=== PATIENT | male | born 1975 | race Caucasian/White ===

== ENCOUNTER → 2017-06-22 | Outpatient (CLI) | payer BC | LOC: BMCIMAGING 14:32 | PROVIDERS: ATTEND Registered Nurse General Practice | DX: M25.571 Pain in right ankle and joints of right foot (principal) ==

== ENCOUNTER 2018-05-09 10:39 | Emergency (ER) | payer BC ==
--- NOTE | 2018-05-09 10:58 | CPEKG ---
Heart Rate: 66 RR Interval: 909 P-R Interval: 140 QRSD Interval: 98 QT Interval: 404 QTC Interval: 424 P Narrows: 61 QRS Narrows: 72 T Wave Narrows: 12 EKG Severity - NORMAL ECG - EKG Impression: SINUS RHYTHM Electronically Signed By: Narinder Cruz 09-May-2018 11:53:01
[2018-05-09] MEDS ORDERED: HYOSCYAMINE SULFATE 0.125 MG TAB PO ONE (10:59)
[2018-05-09] MEDS ORDERED: MAG HYDROX/AL HYDROX/SIMETH 30 ML UDCUP PO ONE (10:59)
[2018-05-09] MEDS ORDERED: LIDOCAINE 2% VISCOUS 15 ML UDCUP PO ONE (10:59)
--- NOTE | 2018-05-09 11:02 | EDPHY ---
H & P Stated Complaint: CP Time Seen by Provider: 05/09/18 11:00 HPI/ROS: HPI: This is a 43-year-old male who presents with Chief Complaint: Epigastric and left upper quadrant pain times several weeks Location: Epigastric and left upper quadrant Quality: Pain Duration: Several weeks Signs and Symptoms: no shortness of breath at rest, no shortness of breath on exertion, no cough, no chest pain, no palpitations, no lower extremity edema, no wheezing, no orthopnea, no paroxysmal nocturnal dyspnea, no fever, no injury/ trauma, no hemoptysis, no carpal pedal spasms Timing: Intermittent episodes Severity: Suid-nv-yfbnrist Context: Patient is generally healthy, presents with intermittent episodes of epigastric and left upper quadrant burning pain that occurs approximately 2-3 times per week. He reports that there is no increase of the pain or shortness of breath with exertion. He denies any indigestion, early satiety, constipation , abdominal bloating, palpitations, lower extremity edema, calf pain. He did fly to [place] approximately 1-2 weeks ago. He is a nonsmoker. Denies any family cardiac history. He is physically active. He does report some belching and food intolerances. Does not regularly take NSAIDs. Only has 4 drinks of alcohol per week. Modifying Factors: None Comment: ROS: see HPI Constitutional: No fever, no chills, no weight loss Eyes: No blurred vision Respiratory: No shortness of breath, no cough Cardiovascular: + chest pain, no palpitations, no lower extremity edema Gastrointestinal: No nausea, no vomiting, no diarrhea Genitourinary: No dysuria Extremities: No myalgias Neurologic: No weakness, no numbness Skin: No rashes Hematologic: No bruising, no bleeding MEDICAL/SURGICAL/SOCIAL HISTORY: Medical history: Generally healthy. Does not take any regular medications. Surgical history: Varicocele surgery Social history: Never smoked. Employed CONSTITUTIONAL: Extremely well-appearing middle-aged white male who is physically fit, awake and alert, no obvious distress HEENT: Atraumatic and normocephalic, PERRL, EOMI. Nares patent; no rhinorrhea; no nasal mucosal edema. Tympanic membranes clear. Oropharynx clear, no exudate and moist pink mucosa. Airway patent. No lymphadenopathy. No meningismus. Cardiovascular: Normal S1/S2, regular rate, regular rhythm, without murmur rub or gallop. PULMONARY/CHEST: Symmetrical and nontender. Clear to auscultation bilaterally. Good air movement. No accessory muscle usage. ABDOMEN: Soft, nondistended, nontender, no rebound, no guarding, no peritoneal signs, no masses or organomegaly. No CVAT. EXTREMITIES: 2/2 pulses, strength 5/5, no deformities, no clubbing, no cyanosis or edema. NEUROLOGICAL: no focal neuro deficits. GCS 15. SKIN: Warm and dry, no erythema. no rash. Good capillary refill. Source: Patient Exam Limitations: No limitations - Personal History Current Tetanus/Diphtheria Vaccine: Yes Current Tetanus Diphtheria and Acellular Pertussis (TDAP): Yes - Medical/Surgical History Hx Asthma: No Hx Chronic Respiratory Disease: No Hx Diabetes: No Hx Cardiac Disease: No Hx Renal Disease: No Hx Cirrhosis: No Hx Alcoholism: No Hx HIV/AIDS: No Hx Splenectomy or Spleen Trauma: No Other PMH: varicocele surgery - Social History Smoking Status: Never smoked Constitutional: Initial Vital Signs Temperature (C) 36.8 C 05/09/18 10:42 Heart Rate 62 05/09/18 10:42 Respiratory Rate 16 05/09/18 10:42 Blood Pressure 133/81 H 05/09/18 10:42 O2 Sat (%) 98 05/09/18 10:42 O2 Delivery Mode Room Air Allergies/Adverse Reactions: No Known Allergies Allergy (Unverified 05/09/18 10:42) Home Medications: Medication Instructions Recorded Pantoprazole Sodium [Protonix 40mg 40 mg PO BID #60 tab 05/09/18 (*)] Medical Decision Making - Diagnostics EKG Interpretation: 12 lead EKG: Indication: Abdominal Rhythm: Normal sinus rhythm, rate of 66 beats per minute Boswell: Normal Intervals: Normal QRS: Normal ST segments: Normal INTERPRETATION: Normal EKG The 12 lead EKG was interpreted by myself and with attending. Imaging Results: Imaging Impressions Chest X-Ray 05/09/18 10:59 Impression: No acute findings in the chest. ED Course/Re-evaluation: Vital signs reviewed and stable upon arrival. EKG my read shows no acute ischemic changes, no arrhythmias. Labs, chest x-ray, oral medications ordered Patient given GI cocktail. Abdomen is soft and nontender; doubt surgical abdomen. 1130: Labs reviewed. No signs of leukocytosis/anemia/platelet dysfunction/RAJESH/ elevated LFTs/electrolyte imbalance/pancreatitis/VTE/ACS. Heart score is low. Second troponin not indicated as pain has been going on for several weeks. No right upper quadrant tenderness. Discussed obtaining right upper quadrant ultrasound and patient politely declines and wishes to follow up outpatient if needed. Reassessed patient who reports relief with GI cocktail. Chest x-ray my read shows no opacity, no effusion, no hiatal hernia, no pneumothorax. Patient started on Protonix. This patient was seen under the supervision of my secondary supervising physician. I evaluated care for this patient independently. Discussed this patient with Dr. Cruz. Differential Diagnosis: Chest pain including but not limited to myocardial ischemia, pulmonary embolus, chest wall pain, pleural inflammation and pulmonary infectious causes. - Data Points Laboratory Results: Laboratory Results 05/09/18 11:00 05/09/18 11:00 05/09/18 05/09/18 05/09/18 11:03 11:00 11:00 WBC RBC Hgb Hct MCV MCH MCHC RDW Plt Count MPV Neut % (Auto) Lymph % (Auto) Gilchrist % (Auto) Eos % (Auto) Baso % (Auto) Nucleat RBC Rel Count Absolute Neuts (auto) Absolute Lymphs (auto) Absolute Monos (auto) Absolute Eos (auto) Absolute Basos (auto) Absolute Nucleated RBC Immature Gran % Immature Gran # D-Dimer < 0.27 ug/mLFEU ug/mLFEU (0.00-0.50) Sodium 144 mEq/L mEq/L (135-145) Potassium 3.9 mEq/L mEq/L (3.3-5.0) Chloride 101 mEq/L mEq/L (97-110) Carbon Dioxide 31 mEq/l mEq/l (22-31) Anion Gap 12 mEq/L mEq/L (8-16) BUN 14 mg/dL mg/dL (7-23) Creatinine 0.8 mg/dL mg/dL (0.7-1.3) Estimated GFR > 60 Glucose 101 mg/dL H mg/dL (70-100) Calcium 9.6 mg/dL mg/dL (8.5-10.4) Total Bilirubin 0.5 mg/dL mg/dL (0.1-1.4) Conjugated Bilirubin 0.0 mg/dL mg/dL (0.0-0.5) Unconjugated Bilirubin 0.5 mg/dL mg/dL (0.0-1.1) AST 32 IU/L IU/L (17-59) ALT 29 IU/L IU/L (21-72) Alkaline Phosphatase 56 IU/L IU/L (38-126) POC Troponin I 0.00 ng/mL ng/mL (0.00-0.08) Total Protein 8.0 g/dL g/dL (6.3-8.2) Albumin 4.9 g/dL g/dL (3.5-5.0) Lipase 116 IU/L IU/L (23-300) 05/09/18 11:00 WBC 6.57 10^3/uL 10^3/uL (3.80-9.50) RBC 5.11 10^6/uL 10^6/uL (4.40-6.38) Hgb 15.7 g/dL g/dL (13.7-17.5) Hct 45.9 % % (40.0-51.0) MCV 89.8 fL fL (81.5-99.8) MCH 30.7 pg pg (27.9-34.1) MCHC 34.2 g/dL g/dL (32.4-36.7) RDW 12.0 % % (11.5-15.2) Plt Count 184 10^3/uL 10^3/uL (150-400) MPV 10.9 fL fL (8.7-11.7) Neut % (Auto) 60.0 % % (39.3-74.2) Lymph % (Auto) 31.7 % % (15.0-45.0) Gilchrist % (Auto) 6.1 % % (4.5-13.0) Eos % (Auto) 1.5 % % (0.6-7.6) Baso % (Auto) 0.5 % % (0.3-1.7) Nucleat RBC Rel Count 0.0 % % (0.0-0.2) Absolute Neuts (auto) 3.95 10^3/uL 10^3/uL (1.70-6.50) Absolute Lymphs (auto) 2.08 10^3/uL 10^3/uL (1.00-3.00) Absolute Monos (auto) 0.40 10^3/uL 10^3/uL (0.30-0.80) Absolute Eos (auto) 0.10 10^3/uL 10^3/uL (0.03-0.40) Absolute Basos (auto) 0.03 10^3/uL 10^3/uL (0.02-0.10) Absolute Nucleated RBC 0.00 10^3/uL 10^3/uL (0-0.01) Immature Gran % 0.2 % % (0.0-1.1) Immature Gran # 0.01 10^3/uL 10^3/uL (0.00-0.10) D-Dimer Sodium Potassium Chloride Carbon Dioxide Anion Gap BUN Creatinine Estimated GFR Glucose Calcium Total Bilirubin Conjugated Bilirubin Unconjugated Bilirubin AST ALT Alkaline Phosphatase POC Troponin I Total Protein Albumin Lipase Medications Given: Discontinued Medications Al Hydroxide/Mg Hydroxide (Maalox Susp) 30 ml PO ONCE ONE Stop: 05/09/18 11:00 Last Admin: 05/09/18 11:07 Dose: 30 ml Hyoscyamine Sulfate (Levsin, Hyomax-Sl) 0.25 mg PO ONCE ONE Stop: 05/09/18 11:00 Last Admin: 05/09/18 11:07 Dose: 0.25 mg Lidocaine (Lidocaine 2% Viscous) 15 ml PO ONCE ONE Stop: 05/09/18 11:00 Last Admin: 05/09/18 11:07 Dose: 15 ml Point of Care Test Results: Chemistry 05/09/18 11:03 POC Troponin I 0.00 ng/mL ng/mL (0.00-0.08) Departure - Departure Disposition: Home, Routine, Self-Care Clinical Impression: GERD (gastroesophageal reflux disease) Qualifiers: Esophagitis presence: esophagitis presence not specified Qualified Code(s): K21.9 - Gastro-esophageal reflux disease without esophagitis Condition: Good Instructions: Pantoprazole (By mouth), Gastroesophageal Reflux Disease in Children (ED), Diet for Stomach Ulcers and Gastritis (ED), Upper Endoscopy (DC) Additional Instructions: Take Protonix twice a day for 2 weeks and then 40 mg once daily thereafter. Please avoid any spicy, citrus, large meals. If symptoms persist, please follow-up with primary care provider to discuss need for right upper quadrant ultrasound versus gastroenterology referral for EGD. Return to the ER immediately if you experience new, continued or worsening abdominal pain, fevers/chills, inability to tolerate oral intake, new pain, or any other symptoms that concern you. Referrals: Lara Burgos MD [Primary Care Provider] - As per Instructions Prescriptions: Pantoprazole Sodium [Protonix 40mg (*)] 40 mg PO BID #60 tab
[2018-05-09 11:15] LABS: PLATELET COUNT 184 10^3/uL (150-400)
[2018-05-09 12:07] VITALS: BP 121/65
== END 2018-05-09 12:06 | disposition home or self-care (01) ==
DX: R10.13 Epigastric pain (principal); R10.11 Right upper quadrant pain
CPT/HCPCS: 84484-PO